=== PATIENT | male | born 1960 | race Caucasian/White ===

== ENCOUNTER 2020-10-04 17:05 | Observation (INO) | payer OTHER ==
[~2020-10-04] VITALS: Ht 172.7 cm; Wt 82.3 kg
[~2020-10-04 17:05] MED LIST: ACET325T9 PO; AMLO-187 PO; ASPI-630 PO; DIVA500T17 PO; FOLI1TAB16 PO; LEVO75TA5 PO; LISI20TA18 PO; MULT-445 PO; OMEG500C PO; OMEP40CA7 PO; PROP10TA PO; PSYL0.4C PO; SUCR1TAB35 PO; THIA100T8 PO; TRAZ-125 PO; VALPROIC ACID; amlodipine; carafate; fish oil; lisinopril; propranolol; synthroid; trazodone
[2020-10-04] MEDS ORDERED: LORazepam 1 MG TABLET PO ONE (17:30)
[2020-10-04] MEDS ORDERED: LORazepam 1 MG TABLET ONE (17:32)
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
[2020-10-04 18:45] LABS: BASO # 0.2 x10^3/uL (0.0-0.2); BASO % 3 % (0-3); EOS % 1 % (0-3); HEMATOCRIT 42.9 % (39.0-53.0); HEMOGLOBIN 14.6 g/dL (13.0-17.5); LYMPH # 1.5 x10^3/uL (1.0-4.8); LYMPH % 28 % (24-48); MEAN CORPUSCULAR HEMOGLOBIN 34 pg (25-35); MEAN CORPUSCULAR HGB CONC 34 g/dL (31-37); MEAN CORPUSCULAR VOLUME 101 fL (79-100); MONO # 0.5 x10^3/uL (0.0-1.1); MONO % 9 % (0-9); NEUT # 3.3 x10^3uL (1.8-7.7); NEUT % 60 % (31-73); PLATELET COUNT 231 x10^3/uL (140-400); RED BLOOD COUNT 4.26 x10^6/uL (4.30-5.70); RED CELL DISTRIBUTION WIDTH 15.3 % (11.5-14.5); WHITE BLOOD COUNT 5.5 x10^3/uL (4.0-11.0)
[2020-10-04 18:47] LABS: CALCIUM 8.2 mg/dL (8.5-10.1); GFR 76.5; POTASSIUM 3.3 mmol/L (3.5-5.1)
[2020-10-04 18:54] LABS: ACETAMIN < 2 mcg/mL (10-30); ETHANOL 385 mg/dL (0-10); SALIC < 2.8 mg/dL (2.8-20.0)
[2020-10-04 18:55] LABS: ALBUMIN 3.6 g/dL (3.4-5.0); ALBUMIN/GLOBULIN RATIO 1.1 (1.0-1.7); TOTAL BILIRUBIN 0.7 mg/dL (0.2-1.0)
[2020-10-04] MEDS ORDERED: FAMOTIDINE 20 MG/2 ML VIAL ONE (19:59)
[2020-10-04 20:31] LABS: BARBITURATES NEG (NEG); BENZODIAZEPINES NEG (NEG); CANNABINOIDS NEG (NEG); COCAINE NEG (NEG); METHADONE NEG (NEG); OPIATES NEG (NEG); PHENCYCLIDINE NEG (NEG)
[2020-10-04 20:35] LABS: AMPHETAMINE/METHAMPHETAMINE NEG (NEG)
[2020-10-04 20:43] LABS: BILIRUBIN,URINE NEG (NEG); CLARITY,URINE CLEAR; COLOR,URINE YELLOW; GLUCOSE,URINE NEG (NEG)
[2020-10-04 20:44] LABS: BACTERIA,URINE 0 /HPF (0-FEW); NITRITE,URINE NEG (NEG); RBC,URINE OCC /HPF (0-2); UROBILINOGEN,URINE 0.2 mg/dL (0.2 mg/dL); WBC,URINE OCC /HPF (0-4)
--- NOTE | 2020-10-04 21:08 | EKG ---
[address] [address] Test Date: 2020-10-04 Test Time: 19:10:12 Pat Name: BG CERVANTES Department: Room: Gender: M Pvc Monitor: : 1960 Requested By: CYNTHIA GRESHAM Order Number: [id number] Reading MD: Measurements Intervals [place] Rate: 83 P: 42 IA: 150 QRS: -38 QRSD: 104 T: 56 QT: 392 QTc: 467 Interpretive Statements SINUS RHYTHM ABNORMAL LEFT AXIS DEVIATION LEFT ANTERIOR FASCICULAR BLOCK ABNORMAL ECG RI6.02 No previous ECG available for comparison
[2020-10-04] MEDS ORDERED: IV RINGERS SOLUTION,LACTATED 1,000 ML IV ONE (21:30)
[2020-10-04] MEDS ORDERED: CYANOCOBALAMIN (VITAMIN B-12) 100 MCG TABLET PO ONE (21:30)
[2020-10-04] MEDS ORDERED: FOLIC ACID 1 MG TABLET PO ONE (21:30)
[2020-10-05] VITALS (10 sets, daily range): BP systolic 161–203; BP diastolic 83–123
[2020-10-05] MEDS ORDERED: MIDAZOLAM HCL PF 5 MG/5 ML VIAL. ONE (00:55)
[2020-10-05] MEDS ORDERED: MIDAZOLAM HCL PF 5 MG/5 ML VIAL. IV ONE ×4 (01:00→06:00)
[2020-10-05] MEDS ORDERED: ONDANSETRON PF 4 MG/2 ML VIAL. ONE (02:48)
[2020-10-05] MEDS ORDERED: ONDANSETRON PF 4 MG/2 ML VIAL. IVP ONE ×3 (03:00→07:15)
[2020-10-05] MEDS ORDERED: LISINOPRIL 10 MG TABLET ONE (05:15)
[2020-10-05] MEDS ORDERED: hydrALAZINE 20 MG/ML VIAL. IV ONE (05:15)
[2020-10-05] MEDS ORDERED: IV RINGERS SOLUTION,LACTATED 1,000 ML IV ONE (05:30)
[2020-10-05] MEDS ORDERED: LISINOPRIL 10 MG TABLET PO ONE (05:30)
[2020-10-05] MEDS ORDERED: METOCLOPRAMIDE HCL 10 MG/2 ML VIAL. IM ONE (06:15)
[2020-10-05] MEDS ORDERED: MIDAZOLAM HCL PF 5 MG/5 ML VIAL. IM ONE (06:30)
[2020-10-05] MEDS ORDERED: PROCHLORPERAZINE 10 MG/2 ML VIAL. IV ONE ×2 (07:00→14:45)
--- NOTE | 2020-10-05 07:13 | RAD ---
CT NECK CHEST ABD PELV WO INDICATION: Neck swelling, intractable N/V, eval for esophageal tear Comparison: None. TECHNIQUE: Following the uneventful administration of intravenous contrast, 75 cc Isovue-370, axial C T sections were obtained through the neck, lungs, abdomen, and pelvis. Multiplanar reconstructions we re obtained. PQRS compliance statement: One or more of the following individualized dose reduction techniques were utilized for this examinat ion: 1. Automated exposure control 2. Adjustment of the mA and/or kV according to patient size 3. Use of iterative reconstruction technique FINDINGS: Scattered subcentimeter lymph nodes are seen in the neck. None are pathologically enlarged or abnorma lly enhancing. The parotid, submandibular, and thyroid glands are normal. The muscles of the neck are normal. Vessels of the neck demonstrate normal course, caliber, and enhancement. The visualized aero digestive tract is normal. The visualized posterior fossa and brain is unremarkable. The visualized orbits and paranasal sinuses are normal. No pulmonary mass or consolidation. No abnormality of the central airways. The pleural spaces are normal. The visualized thyroid is normal in size and attenuation. No axillary or supraclavicular lymphadenopa thy. No mediastinal, hilar or retrocrural lymphadenopathy. The heart and pericardium are within al l limits. Normal caliber thoracic aorta. Hepatic steatosis. Cholecystectomy. The spleen, pancreas, and adrenal glands are unremarkable. Nonob structive left renal 2 mm calculus. No hydronephrosis. There is no significant mesenteric or retrope ritoneal adenopathy identified. There is no evidence of free intraperitoneal fluid or pneumoperitone um. Visualized portions of the bowel are grossly unremarkable. IVC filter. Aortoiliac atheroscleroti c disease. Bladder is unremarkable. There is no significant pelvic ascites. No significant iliac or inguinal a denopathy is identified. Degenerative changes of the spine. Right shoulder reverse arthroplasty. IMPRESSION: 1. No evidence of esophageal perforation. 2. No pulmonary mass or consolidation. No acute abdominal findings. 3. Hepatic steatosis. Cholecystectomy. Electronically signed by: Leandro García MD (10/05/2020 7:11 AM) [facility]
[2020-10-05] MEDS ORDERED: ZIPRASIDONE IM 20 MG VIAL. IM ONE (10:30)
[2020-10-05] MEDS ORDERED: IV NORMAL SALINE 1,000ML 1,000 ML IV ONE (15:00)
[2020-10-05] MEDS ORDERED: ONDANSETRON PF 4 MG/2 ML VIAL. IVP PRN (15:00)
--- NOTE | 2020-10-05 15:06 | EKG ---
[address] [address] Test Date: 2020-10-05 Test Time: 14:51:41 Pat Name: BG CERVANTES Department: Room: Gender: M [employer]: MORRIS : 1960 Requested By: MADINA GILLIS Order Number: [id number] Reading MD: Measurements Intervals [place] Rate: 103 P: 236 [place]: 98 QRS: -28 QRSD: 98 T: 29 QT: 358 QTc: 471 Interpretive Statements SINUS TACHYCARDIA LEFTWARD AXIS R-S TRANSITION ZONE IN V LEADS DISPLACED TO THE LEFT OTHERWISE NORMAL ECG RI6.02 No previous ECG available for comparison
[2020-10-05] MEDS ORDERED: cloNIDine HCL 0.1 MG TABLET PO PRN ×2 (16:15→18:00)
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
[2020-10-05] MEDS ORDERED: diphenhydrAMINE 50 MG/ML VIAL IVP PRN (18:00)
--- NOTE | 2020-10-05 18:00 | NUR ---
Nursing Note Admission Pt arrived to the unit via EMS gurney. Pt trying to reposition himself in bed. Upon arrival pt BP 202/123. Pt given 0.1mg clonidine. Pt given IV ativan. Pt has a 1-1 sitter. Pt states he's "freaking". Pt able to generally respond to some admission questions.
--- NOTE | 2020-10-05 18:10 | NUR ---
Spoke with Dr. Bhardwaj about blood pressure and pt status. Dr. Bhardwaj ordered [address] Bhardwaj aware that 2mg of ativan had just been given and stated to give another 2mg. stated that his blood pressure is high d/t withdrawal. did not want to order more BP meds.
[2020-10-05] MEDS: HALOPERIDOL LACT 5 MG/ML VIAL. IM PRN (21:35)
--- NOTE | 2020-10-06 00:01 | NUR ---
Pt awake in bed restless at change of shift with 1:1 sitter at bedside. Pt is loosely A&Ox3, can be forgetful and confused at times but answers most questions appropriately. Pt denies SI. Pt restless in bed and frequently attempting to get out of bed. Pt pulling on monitors and at IV sites and will ask for medications by name. BP readings of 203/106, 196/113 and 171/104. Pt given PO Clonidine with some improvement noted - 161/83 and 165/92. Pt given PRN IV Ativan as indicated by CIWA score as per order. Pt also given Haldol and Benadryl with short effectiveness, Pt will fall asleep for about 10-15mins then back to attempting to get out of bed or pulling off monitors. Pt is able to be redirected most of the time but can become agitated with staff.
[2020-10-06 01:15] VITALS: BP 153/83
[2020-10-06] MEDS: HALOPERIDOL LACT 5 MG/ML VIAL. IM PRN (02:27)
--- NOTE | 2020-10-06 02:45 | NUR ---
Pt still very restless in bed, pulling at heart monitor/BP cuff. Pt one minute is able to answer questions appropriately (birthday/name, current location and where he lives) then the next minute is talking to his mother who is not present in room. Pt stated "I wanna go AMA.... or TWA...triple A...whatever its called...I wannnna go!" Pt is extremely unsteady on his feet, assisted back to sitting on side of bed. Pt given PRN Ativan and Haldol as indicated by CIWA score and was able to be redirected after about 10 mins. Pt given juice and voided in urinal for staff. Pt assisted back into bed and given warm blanket. 1to1 staff remains at bedside.
[2020-10-06 05:05] VITALS: BP 170/96
[2020-10-06 06:15] VITALS: BP 148/85
--- NOTE | 2020-10-06 06:15 | NUR ---
Pt frequently will ask "I need more Ativan...Haldol...what about Gabapentin?!?" If pt is informed it is to early to receive PRN medication, pt will begin to shake legs and arms in bed for about 15 seconds, then "wake up" stating that he had a seizure. Pt irritable that this behavior does not get him more medications and will pull off monitors, roll over in bed and pull covers up over head. 1to1 staff remains at bedside.
[2020-10-06] MEDS ORDERED: MVI, ADULT NO.4 WITH VIT K 10 ML, THIAMINE INJ 100 MG, FOLIC ACID INJ 1 MG in IV NORMAL... IV SCH (09:00)
--- NOTE | 2020-10-06 09:52 | NUR ---
DISCHARGE PT REPORTS TO DR RICHARDS HE WANTS TO DISCHARGE HOME, RATHER THAN GO TO REHAB. HE THREATENS TO LEAVE AMA IF NOT DISCHARGED. DISCHARGE ORDERS PUT IN BY DR RICHARDS, REVIEWED WITH PATIENT. IV'S TELEMETRY DISCONTINUED. [facility] CAB CALLED FOR TRANSPORT BACK TO APARTMENT.
--- NOTE | 2020-10-06 09:53 | DS ---
DATE OF DISCHARGE: 10/06/2020 ATTENDING PHYSICIAN: Dr. Bhardwaj. FINAL DISCHARGE DIAGNOSES: 1. Alcohol withdrawal symptoms. 2. Suicidal ideation, resolved. 3. Chronic alcoholism. 4. Noncompliance of meds. 5. Alcoholic liver disease. 6. Alcoholic gastritis. 7. Generalized debilitation. HISTORY AND PHYSICAL: The patient is a 59-year-old gentleman, chronic alcoholic. He was intoxicated. His blood alcohol level was 398. He had initially stated some suicidal ideation. This turned out to be not the case when he became sober, he denied any ideation. He was in the Emergency Department for 23 hours. They had a trouble getting him across the street to the [place]. They were full. He was diverted here. He was admitted for alcohol withdrawal symptoms. He did have the psychiatric assessment team saw him and they felt he was not suicidal. They felt the outpatient plan through the [place] system whether or not he will follow to remains to be seen. PHYSICAL EXAMINATION: Please see the dictated note. PERTINENT LABORATORY AND X-RAY STUDIES: Admission alcohol was 398 mg/dL. Hemoglobin 14.6 g. Elevated MCV. White count 5500. Electrolytes: Sodium 146, potassium 3.3. Cardiac enzymes negative for coronary ischemia. Creatinine is 1.0 mg percent. COURSE IN THE HOSPITAL: The patient was admitted. He was placed on the monitor. We initiated CIWA protocol. He required large amounts of Ativan to prevent withdrawal symptoms. Please refer to the database. By the next day, he was sober. I actually had him get up to walk, he was actually somewhat stable. He did not require any assistance. He wanted to go home. He denied any suicidal ideation. We therefore got transportation for cab ride to take him across [address] to the other side of the street where he resides. There are no changes. He was scheduled to get aspirin, Depakote, lisinopril, omeprazole, and trazodone. Whether or not he is [facility] remains to be seen. In any event, the patient was then discharged from our hospital in stable condition with explicit instructions and followup care. Strong encouragement to quit drinking. Whether he will quit drinking remains to be seen. RADHA DR: Aristeo TID: [id number]
== END 2020-10-06 10:14 | disposition home or self-care (01) ==
LOC: ER 17:05 → ICU 10-05 14:50 → INTOOBSV 10-05 14:50
PROVIDERS: ADMIT Hospitalist; ATTEND Hospitalist
DX: F10.229 Alcohol dependence with intoxication, unspecified (principal); F10.239 Alcohol dependence with withdrawal, unspecified; F31.9 Bipolar disorder, unspecified; Z20.822 Contact with and (suspected) exposure to COVID-19; E03.9 Hypothyroidism, unspecified; K29.20 Alcoholic gastritis without bleeding; K70.30 Alcoholic cirrhosis of liver without ascites; D68.2 Hereditary deficiency of other clotting factors; F41.1 Generalized anxiety disorder; I10 Essential (primary) hypertension; K76.0 Fatty (change of) liver, not elsewhere classified; R45.851 Suicidal ideations; Z91.5 Personal history of self-harm; Z91.14 Patient's other noncompliance with medication regimen; Z87.442 Personal history of urinary calculi; Z79.899 Other long term (current) drug therapy; Y90.8 Blood alcohol level of 240 mg/100 ml or more
CPT/HCPCS: 36415; 70490; 71250; 74176; 80053; 80307; 80329; 81001; 82947; 84484; 85025; 87426; 93005; 96361; 96372; 96374; 96375; 96376; 99285; G0378; G0480; J0360; J0780; J1200; J1630; J2060; J2250; J2405; J2765; J7030; J7120; U0003; 96360; G0379